=== PATIENT | male | born 1995 | race African-American/Black ===

== ENCOUNTER 2017-04-30 19:29 | Emergency (ER) | payer OTHER, BC ==
[~2017-04-30] VITALS: Ht 175.3 cm; Wt 69.4 kg
[2017-04-30 19:40] VITALS: BP 140/92
[2017-04-30] MEDS ORDERED: NAPROXEN 500 MG TABLET PO STA (19:55)
[2017-04-30] MEDS ORDERED: CYCLOBENZAPRINE 10 MG TABLET. PO ONE (20:00)
[2017-04-30] MEDS ORDERED: HYDROcodone/APAP 5/325MG 1 TAB TABLET PO ONE (20:00)
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
[2017-04-30] MEDS ORDERED: NAPR500T8 PO (20:44)
[2017-04-30] MEDS ORDERED: CYCL10TA2 PO (20:44)
--- NOTE | 2017-05-01 07:51 | RAD ---
Three-view left shoulder radiograph 04/30/2017 Clinical indication: Left shoulder pain. Comparison: None. Findings: No acute fracture or traumatic malalignment. Joint spaces are maintained. Periventricular soft tissues are unremarkable. Impression: No acute osseous abnormality.
--- NOTE | 2017-05-01 07:51 | RAD ---
2 view left humerus radiograph 04/30/2017 Clinical indication: Pain. Left arm pain. Comparison: None. Findings: No acute fracture or traumatic malalignment. Soft tissues unremarkable. Impression: No acute osseous abnormality.
== END 2017-04-30 20:56 | disposition home or self-care (01) ==
LOC: ER 19:29
DX: M79.622 Pain in left upper arm (principal); V89.2XXA Person injured in unspecified motor-vehicle accident, traffic, initial encounter; Y93.89 Activity, other specified; Y99.8 Other external cause status; Y92.410 Unspecified street and highway as the place of occurrence of the external cause
CPT/HCPCS: 73030; 73060; 99284